=== PATIENT | male | born 2000 | race American Indian/Alaskan Native ===

== ENCOUNTER 2020-12-22 10:55 | Emergency (ER) | payer SELFPAY ==
[2020-12-22 12:44] VITALS: BP 133/76
[2020-12-22] MEDS ORDERED: LIDOCAINE (1%) 10 MG/1 ML VIAL 20 ML MDV INFILTRATI ONE (12:45)
--- NOTE | 2020-12-22 12:45 | Emergency Department Report ---
Abscess Boil HPI - HPI Chief Complaint: Extremity Injury, Upper Stated Complaint: LT HAND TURNING PURPLE Time Seen by Provider: 12/22/20 12:33 Duration: 4 Days Location: Other (left thumb) Severity: Moderate History: Yes Pain, Yes Purulent Drainage, No Fever, No Previous History, No Insect Bite HPI: 20-year-old male presents to the ER today with complaints of left thumb pain pain and swelling. Patient states that his symptoms started 4 days ago. 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 He states that the pain and swelling was getting worse over the past 4 days and he did notice pus drainage from around the nail. He states that he tried picking at the area to see if it would drain more but it did not. He denies any fever or chills or any other symptoms at this time. Home Medications: Previous Rx's Medication Instructions Recorded Last Taken Type Ibuprofen [Motrin] 600 mg PO Q8H PRN #30 tablet 12/22/20 Unknown Rx Sulfamethoxazole/Trimethoprim 1 each PO BID #14 tablet 12/22/20 Unknown Rx [Bactrim DS TAB] Allergies/Adverse Reactions: Allergies Allergy/AdvReac Type Severity Reaction Status Date / Time No Known Allergies Allergy Verified 12/22/20 11:43 ED Review of Systems ROS: Stated complaint: LT HAND TURNING PURPLE Other details as noted in HPI Comment: All other systems reviewed and negative Musculoskeletal: joint swelling, arthralgia Skin: other (Left thumb redness pain and swelling) ED Past Medical Hx - Past Medical History Previous Medical History?: No - Surgical History Past Surgical History?: No - Social History Smoking Status: Never Smoker Substance Use Type: None - Medications Home Medications: Home Medications Medication Instructions Recorded Confirmed Last Taken Type Ibuprofen [Motrin] 600 mg PO Q8H PRN #30 tablet 12/22/20 Unknown Rx Sulfamethoxazole/Trimethoprim 1 each PO BID #14 tablet 12/22/20 Unknown Rx [Bactrim DS TAB] ED Abscess Boil Physical Exam - Exam General: Vital signs noted. No distress. Alert and acting appropriately. Exam: Yes Tenderness (Left thumb around the nail fold), Yes Fluctuance (Left thumb, around the nail fold), Yes Surrounding Cellulites/Erythema (Mild erythema around nail fold, no streaking), Yes Normal Neurologic Exam, Yes Normal Circulation, No Lymphangitis, No Crepitation, No Heart Murmur Critical care attestation.: If time is entered above; I have spent that time in minutes in the direct care of this critically ill patient, excluding procedure time. ED Disposition Clinical Impression: Paronychia, finger Disposition: DC-01 TO HOME OR SELFCARE Is pt being admited?: No Does the pt Need Aspirin: No Condition: Stable Instructions: Paronychia, [id number] Additional Instructions: Take the Bactrim as prescribed. Take the Motrin as prescribed to help with any pain. Keep the wound clean daily with soap and water. Do not use alcohol or peroxide. Return to the ER if your symptoms changes or worsens in any way. Prescriptions: Sulfamethoxazole/Trimethoprim [Bactrim DS TAB] 1 each PO BID #14 tablet Ibuprofen [Motrin] 600 mg PO Q8H PRN #30 tablet PRN Reason: Pain Referrals: [facility] [Provider Group] - 3-5 Days Forms: Work/School Release Form(ED) Time of Disposition: 14:18 - I & D Left Distal Finger Type of Procedure: Simple Site: distal left thumb Blade Size: 11 I & D Procedure: betadine prep Progress: This was an I&D of a paronychial abscess. Patient tolerated the procedure well without any complications. - Nerve Block Consent Obtained: verbal consent Time Out Performed: No Local Anesthetic Used: Lidocaine 1% Amount of anesthesia used: 8 Side: left Nerve Blocks: digital Procedure Successful: Yes Complications: none Patient Tolerated Procedure: well, no complications
== END 2020-12-22 15:13 | disposition home or self-care (01) ==
LOC: ED 10:55
DX: L03.012 Cellulitis of left finger (principal); Z79.899 Other long term (current) drug therapy